=== PATIENT | male | born 1965 | race Caucasian/White ===

== ENCOUNTER 2021-05-26 13:23 | Outpatient (CLI) | payer OTHER | END 2021-05-26 13:24 | disposition home or self-care (01) | LOC: CT 13:23 | CPT/HCPCS: 36415; 70470; 70491; 73030; 82565; 84520; Q9967 ==

== ENCOUNTER 2021-11-03 07:23 | Outpatient (CLI) | payer OTHER ==
--- NOTE | 2021-11-03 08:41 | Ultrasound Report ---
LIMITED RUQ ABDOMINAL ULTRASOUND INDICATION: LIVER PROBLEMS. COMPARISON: No relevant prior imaging study available. FINDINGS: Pancreas: Visualized portions show no significant abnormality. Abdominal Aorta: No significant abnormality. IVC: No significant abnormality. Liver: The liver measures 16.1 cm in length. The liver is mildly echogenic consistent with mild stea tosis. No focal liver lesion. Normal hepatopedal blood flow in the main portal vein. Gallbladder: No significant abnormality. Bile ducts: No significant abnormality. Common bile duct measures 2.4 mm. Right kidney: No significant abnormality visualized. Free fluid: None. Additional Findings: None. IMPRESSION: Mild hepatic steatosis, otherwise, unremarkable exam. Signer Name: Edgardo Morales Jr, MD Signed: 11/03/2021 8:37 AM Workstation Name: [id number]
== END 2021-11-03 07:24 | disposition home or self-care (01) ==
LOC: US 07:23
PROVIDERS: ATTEND Specialist
DX: K76.0 Fatty (change of) liver, not elsewhere classified (principal)
CPT/HCPCS: 76705

== ENCOUNTER 2022-05-18 10:13 | Outpatient (CLI) | payer OTHER ==
[2022-05-18 11:44] LABS: Blood Urea Nitrogen 22 mg/dL (9-20)
--- NOTE | 2022-05-18 14:01 | Cat Scan Report ---
CT ABDOMEN AND PELVIS WITH CONTRAST HISTORY: HEMATURIA. COMPARISON: Abdominal ultrasound from TECHNIQUE: CT images of the abdomen and pelvis were obtained following administration of intravenous contrast. All CT scans at this location are performed using CT dose reduction for ALARA by means of automated exposure control. CONTRAST: 100 ml of intravenous contrast administered. FINDINGS: Lungs/bones: Minimal bibasilar atelectasis with otherwise clear lungs. Degenerative changes in the s pine and pelvis with nothing acute. Abdomen/pelvis: On the noncontrast portion of the exam, there is no radiopaque urinary stone disease . After the administration of contrast, there is a tiny simple cyst in the midpole of the left kidney . Right kidney is unremarkable. Borderline hepatic steatosis is present with tiny cyst in the right lobe. The gallbladder, biliary tr ee, spleen, pancreas, adrenals, and proximal GI tract appear unremarkable. The prostate is enlarged and indents the bladder base. There is smooth circumferential bladder wall t hickening with no internal stone or mass identified. No pelvic free fluid. No acute colonic abnormali ty. Mild diverticulosis is present. The appendix is normal. IMPRESSION: 1. Findings most suggestive of partial urinary outlet obstruction including prostatomegaly indenting the bladder base and circumferential bladder wall thickening. No renal stone disease. 2. Incidental findings as above. Signer Name: Krishna Chi MD Signed: 05/18/2022 1:57 PM Workstation Name: [id number]
== END 2022-05-18 10:14 | disposition home or self-care (01) ==
LOC: CT 10:13
PROVIDERS: ATTEND Specialist
DX: N28.1 Cyst of kidney, acquired (principal); R31.9 Hematuria, unspecified; J98.11 Atelectasis; K76.0 Fatty (change of) liver, not elsewhere classified
CPT/HCPCS: 36415; 74178; 82565; 84520; Q9967